=== PATIENT | female | born 1980 | race Caucasian/White ===

== ENCOUNTER → 2016-07-09 | Outpatient (CLI) | payer BC ==
--- NOTE | 2016-07-09 08:43 | XR ---
EXAMINATION TYPE: XR ankle complete LT DATE OF EXAM: 07/09/2016 8:35 AM COMPARISON: NONE HISTORY: Pain Three views of the ankle demonstrate the ankle mortise to be intact and symmetric. The joint spaces are preserved. The osseous structures are intact. Soft tissue edema noted. IMPRESSION: 1. No definite acute fracture or dislocation, if symptoms persist follow-up study in 7 to 10 days wou ld be suggested.
--- NOTE | 2016-07-09 08:45 | XR ---
EXAMINATION TYPE: XR cervical spine comp DATE OF EXAM: 07/09/2016 8:35 AM COMPARISON: NONE HISTORY: Pain Odontoid, frontal, lateral, and bilateral oblique views of the cervical spine are submitted. The odontoid is intact. There are no compression deformities. The prevertebral soft tissue structur es are within normal limits. Moderate hypertrophic and degenerative change C5-C6. IMPRESSION: 1. Moderate degenerative disc disease C5-C6. Consider MRI follow-up.
--- NOTE | 2016-07-09 08:47 | XR ---
EXAM TYPE: LUMBAR SPINE X RAY SERIES COMPARISON: NONE HISTORY: Back pain FINDINGS: Alignment is anatomic. The pedicles are intact. The transverse processes are intact. There is no s pondylolysis or spondylolisthesis. Severe degenerative disc disease L3-L4 with posterior spondylosis . Facet arthropathy L3-S1. IMPRESSION: 1. Severe degenerative disc disease L3-L4..
== END | disposition home or self-care (01) ==
LOC: RADXRMAIN 07:49
PROVIDERS: ATTEND Family Medicine
DX: M50.322 Other cervical disc degeneration at C5-C6 level (principal); M51.36 Other intervertebral disc degeneration, lumbar region; M25.572 Pain in left ankle and joints of left foot
CPT/HCPCS: 72050; 72110

== ENCOUNTER → 2016-08-05 | Outpatient (CLI) | payer BC ==
--- NOTE | 2016-08-05 08:51 | MR ---
EXAMINATION TYPE: MR lumbar spine wo con DATE OF EXAM: 08/05/2016 7:40 AM COMPARISON: NONE HISTORY: Pain TECHNIQUE: Multiplanar, multisequence images of the lumbar spine were acquired. L1-L2: Normal disc appearance without desiccation. No herniation, protrusion or disc bulging. No ca nal stenosis is present. Foramina are patent bilaterally. L2-L3: Normal disc appearance without desiccation. No herniation, protrusion or disc bulging. No ca nal stenosis is present. Foramina are patent bilaterally. L3-L4: Moderate disc desiccation is present. Circumferential disc bulge greatest posteriorly with the effacement of the ventral thecal sac. No evidence for central stenosis or lateral recess stenosis at this time. No disc herniation identified. Facet joint arthropathy also contributes to mild bilateral foraminal encroachment at this level. Degenerative endplate marrow changes identified. Mild ventral spondylosis. L4-L5: Normal disc appearance without desiccation. No herniation, protrusion or disc bulging. No ca nal stenosis is present. Foramina are patent bilaterally. L5-S1: Normal disc appearance without desiccation. No herniation, protrusion or disc bulging. No ca nal stenosis is present. Foramina are patent bilaterally. Lumbar segments are intact. No paraspinal masses are identified. Conus medullaris has a normal appe arance. IMPRESSION: Degenerative disc disease and disc bulging primarily at L3-4.
== END | disposition home or self-care (01) ==
LOC: RADMRIMAIN 07:07
PROVIDERS: ATTEND Family Medicine
DX: M51.16 Intervertebral disc disorders with radiculopathy, lumbar region (principal)
CPT/HCPCS: 72148

== ENCOUNTER → 2016-09-11 | Outpatient (CLI) | payer BC ==
--- NOTE | 2016-09-11 20:15 | CONS ---
DATE OF CONSULTATION: 09/11/2016 CONSULTATION/NEW PATIENT EVALUATION HISTORY OF PRESENT ILLNESS/SLEEP-WAKE EVALUATION: 36-year-old lady who has been evaluated in the sleep center for possible obstructive sleep apnea-hypopnea syndrome. SLEEP SCHEDULE: Patient's usual sleep schedule from 9:00 p.m. to 5:00 a.m. on working days and from 10 or 12 midnight until 8:00 a.m. on weekends. FALLING ASLEEP: She does have problems with falling asleep, has TV set in bedroom. DURING SLEEP: She sleeps in different positions with loud snoring, witnessed episodes of stopped breathing during sleep. Awakenings from sleep 2 times with one episode of nocturia, panic attack, heartburn. DURING THE DAY/WAKE STATE: In the morning patient wakes up tired, has difficulties to pay attention, has problems with memory, concentration, irritability, depression, anxiety and claustrophobia. Patient referred that she feels tired but possibly not sleepy. [place] Sleepiness Scale is 3. PAST MEDICAL HISTORY: Positive for anxiety, diabetes mellitus and back problems. PAST SURGICAL HISTORY: Cholecystectomy. MEDICATIONS: 1. Xanax. 2. Metformin. 3. Lexapro. 4. Meloxicam. SOCIAL HISTORY: Positive for smoking; quit one year ago, 1 pack a day. Smoked 1 pack a day for about 20 years. Alcohol consumption occasional. REVIEW OF SYSTEMS: Snoring, awakenings from sleep. Tiredness during the day. No fevers. No double vision. No recent chest pain. No shortness of breath. No abdominal pain. No bleeding episodes. No blood in urine. No seizure episodes. FAMILY HISTORY: Hypertension, arthritis, sinus headaches, sleep apnea, snoring, headaches, diabetes, and acid Keflex. PHYSICAL EXAMINATION: GENERAL: A lady without distress. VITAL SIGNS: BP 135/84, HR 74, RR 16. Height 5 foot 8 and one quarter. Weight 277. BMI 32.1. Neck 16 inches. Temperature 98.3. Oxygen saturation at room air 94%. Oropharynx extremely low position of soft palate. NECK: Supple. No JVD. Thyroid is not palpable. LUNGS: Clear to percussion and to auscultation. Good air exchange. No wheezing or rhonchi. HEART: S1, S2 regular. No murmurs, gallops or rubs. ABDOMEN: Obese. Soft and nontender. Bowel sounds are present. No organomegaly appreciated. EXTREMITIES: No clubbing or cyanosis. CHEESE SPRAYER: Awake, alert, and oriented x3. Cranial nerves 2 to 7 intact. There is no fasciculation or atrophy noted. No focal deficits observed. IMPRESSION: 1. Snoring, witnessed episodes of stopped breathing during the sleep, low position of soft palate, obstructive sleep apnea-hypopnea syndrome. 2. Obesity; body mass index 42.1. 3. Anxiety. 4. Diabetes mellitus. 5. Back problems. 6. Status post cholecystectomy. PLAN: 1. Home sleep apnea test for evaluation of patient's breathing during sleep. CPAP/BiPAP titration if sleep study confirms obstructive sleep apnea-hypopnea syndrome. 2. Preferable position during sleep on the side. 3. No driving if patient feels any sleepiness. Patient is aware of civil and criminal liability for unsafe driving. 4. I will see patient for follow-up visit to explain results of the testing and following plan. Thank you very much for referring this patient for consultation Sincerely, Casey Smith MD, PhD, FAASM. Diplomat of [place] [employer], Sleep Medicine Board by [place] [employer] Resident Programs Assistant of [facility] [place]
== END | disposition home or self-care (01) ==
LOC: SLEEP 15:35
PROVIDERS: ATTEND Internal Medicine
DX: G47.33 Obstructive sleep apnea (adult) (pediatric) (principal); E66.9 Obesity, unspecified; F41.9 Anxiety disorder, unspecified; E11.9 Type 2 diabetes mellitus without complications; Z68.41 Body mass index [BMI] 40.0-44.9, adult; Z79.899 Other long term (current) drug therapy
CPT/HCPCS: 99211

== ENCOUNTER 2018-08-12 14:25 | Emergency (ER) | payer BC, OTHER ==
[2018-08-12 14:47] VITALS: TEMP 98.6
[2018-08-12] MEDS ORDERED: SODIUM CHLORIDE 0.9% 500 ML 500 ML IV STA (15:19)
[2018-08-12] MEDS ORDERED: MORPHINE SULFATE 4 MG/ML SYRINGE IVP STA (15:20)
[2018-08-12 15:57] LABS: Basophils % (A) 1 %; Eosinophils # (A) 0.1 k/uL (0-0.7); Eosinophils % (A) 3 %; HCT 40.8 % (34.0-46.0); HGB 13.2 gm/dL (11.4-16.0); Lymphocytes # (A) 1.3 k/uL (1.0-4.8); Lymphocytes % (A) 27 %; MCH 29.7 pg (25.0-35.0); MCHC 32.4 g/dL (31.0-37.0); MCV 91.8 fL (80.0-100.0); Mean Platelet Volume 7.3; Monocytes # (A) 0.2 k/uL (0-1.0); Monocytes % (A) 5 %; Neutrophils # (A) 3.1 k/uL (1.3-7.7); Neutrophils % (A) 63 %; Platelet Count 266 k/uL (150-450); RBC 4.45 m/uL (3.80-5.40); RDW 12.9 % (11.5-15.5); WBC 4.9 k/uL (3.8-10.6)
[2018-08-12 16:05] LABS: INR 0.9 (<1.2); Partial Thromboplastin Time 24.7 sec (22.0-30.0); Prothrombin Time 9.8 sec (9.0-12.0)
[2018-08-12 16:10] LABS: ALT 48 U/L (9-52); AST 34 U/L (14-36); Albumin 4.1 g/dL (3.5-5.0); Alkaline Phosphatase 65 U/L (38-126); Anion Gap 9 mmol/L; Blood Urea Nitrogen 8 mg/dL (7-17); Calcium 9.1 mg/dL (8.4-10.2); Carbon Dioxide 25 mmol/L (22-30); Chloride 107 mmol/L (98-107); Glucose 138 mg/dL (74-99); Potassium 4.3 mmol/L (3.5-5.1); Sodium 141 mmol/L (137-145); Total Bilirubin 0.4 mg/dL (0.2-1.3); Total Protein 6.8 g/dL (6.3-8.2)
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
[2018-08-12] MEDS ORDERED: KETOROLAC 30 MG/ML 1 ML VIAL IVP STA (18:35)
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
[2018-08-12 18:51] VITALS: BP 136/85; PULSE 61; RESP 16
== END 2018-08-12 18:53 | disposition home or self-care (01) ==
LOC: EC 14:25
DX: S09.90XA Unspecified injury of head, initial encounter (principal); K76.0 Fatty (change of) liver, not elsewhere classified; R93.0 Abnormal findings on diagnostic imaging of skull and head, not elsewhere classified; R19.00 Intra-abdominal and pelvic swelling, mass and lump, unspecified site; M54.2 Cervicalgia; R10.9 Unspecified abdominal pain; E11.9 Type 2 diabetes mellitus without complications; F41.9 Anxiety disorder, unspecified; Z87.891 Personal history of nicotine dependence; Z88.0 Allergy status to penicillin; Z79.84 Long term (current) use of oral hypoglycemic drugs; Z79.899 Other long term (current) drug therapy; Z90.49 Acquired absence of other specified parts of digestive tract; V40.5XXA Car driver injured in collision with pedestrian or animal in traffic accident, initial encounter; Y93.89 Activity, other specified; Y92.410 Unspecified street and highway as the place of occurrence of the external cause; Y99.0 Civilian activity done for income or pay
CPT/HCPCS: 36415; 93005; 86900; 86901; 80053; 84484; 85025; 85610; 85730; 86850; 72125; 70450; 71260; 74177; 99284; 96374; 96375; 96361; J2270; J1885; Q9967

== ENCOUNTER → 2021-05-27 | Outpatient (CLI) | payer BC ==
[2021-05-27 10:20] LABS: Basophils # (A) 0.1 k/uL (0-0.2); Basophils % (A) 1 %; Eosinophils # (A) 0.1 k/uL (0-0.7); Eosinophils % (A) 1 %; HGB 12.8 gm/dL (11.4-16.0); Lymphocytes % (A) 31 %; MCH 31.4 pg (25.0-35.0); MCHC 32.7 g/dL (31.0-37.0); Monocytes # (A) 0.3 k/uL (0-1.0); Monocytes % (A) 4 %; Neutrophils % (A) 61 %; Platelet Count 302 k/uL (150-450); RBC 4.07 m/uL (3.80-5.40); RDW 12.2 % (11.5-15.5); WBC 6.5 k/uL (3.8-10.6)
[2021-05-27 10:45] LABS: African American GFR (CKD) >90 (>60 ml/min/1.73 sqM); Anion Gap 10 mmol/L; Blood Urea Nitrogen 13 mg/dL (7-17); Calcium 9.3 mg/dL (8.4-10.2); Carbon Dioxide 26 mmol/L (22-30); Chloride 101 mmol/L (98-107); Glucose 187 mg/dL (74-99); Non-African American GFR(CKD) >90 (>60 ml/min/1.73 sqM); Potassium 3.8 mmol/L (3.5-5.1); Sodium 137 mmol/L (137-145)
== END | disposition home or self-care (01) ==
LOC: LABPAT 09:22
PROVIDERS: ATTEND Orthopaedic Surgery Hand Surgery
DX: Z01.812 Encounter for preprocedural laboratory examination (principal); G56.01 Carpal tunnel syndrome, right upper limb
CPT/HCPCS: 36415; 80048; 85025

== ENCOUNTER 2021-05-29 12:33 | Day surgery (SDC) | payer BC ==
--- NOTE | 2021-05-28 08:42 | P.HPOR ---
History of Present Illness H&P Date: 05/28/21 Chief Complaint: Right Carpal Tunnel Syndrome ubjective: This is a 41 year old female that presents today for initial evaluation regarding b/l hand paresthesias and weakness. She first noticed the symptoms around 18 years ago while she was but has noticed increase in her symptoms over the past 2 years. She has tried night time splinting which provides some relief but she states her numbness is constant now and she occasionally drops things due to the weakness and feelings of electric shocks that she gets in her fingertips. The thumb, index, middle and ring fingers are mainly involved. She states her right side is worse than her left. Physical Examination: RUE: AIN/PIN/Radial/Ulnar/Median motor intact. Radial/Ulnar/Median SILT. 2+/4 Radial/Ulnar pulses palpated. Positive Durkans compression. 5/5 APB, 5/5 FDI. Negative Finkelsteins, Negative CMC grind. LUE: AIN/PIN/Radial/Ulnar/Median motor intact. Radial/Ulnar/Median SILT. 2+/4 Radial/Ulnar pulses palpated. 5/5 APB, 5/5 FDI. Negative Finkelsteins, Negative CMC grind. Impression: 1.) B/L Carpal tunnel syndrome, right worse than left. Plan: Diagnosis and treatment options were discussed with the patient. She has long standing symptoms of bilateral carpal tunnel syndrome and is a candidate for staged carpal tunnel releases. Risks and benefit of surgery including bleeding, infection, damage to surrounding tissue, need for further surgery, possible need to convert to open procedure, residual numbness were discussed and the patient wished to go forward with surgery. We will schedule the right side first followed by the left side 2 weeks later. Basic pre-op labs are ordered. The patient was agreeable with this plan of action and surgery will be scheduled in the near future. I anticipate 2-3 weeks per side off of work if needed due to the lifting nature of her job at [employer]. -Elliott Bains DO Orthopedic Hand/Upper Extremity Surgeon Past Medical History Past Medical History: Diabetes Mellitus Additional Past Medical History / Comment(s): carpal tunnel rt. has nexplanon control History of Any Multi-Drug Resistant Organisms: None Reported Past Surgical History: Section, Cholecystectomy Additional Past Surgical History / Comment(s): D&C Past Anesthesia/Blood Transfusion Reactions: Motion Sickness Past Psychological History: Anxiety Smoking Status: Former smoker Past Alcohol Use History: Rare Additional Past Alcohol Use History / Comment(s): STARTED SMOKING AT AGE 15 QUIT JULY 2015 SMOKED 1PPD Past Drug Use History: Marijuana Additional Drug Use History / Comment(s): edibles - Past Family History Mother Family Medical History: No Reported History Medications and Allergies Home Medications Medication Instructions Recorded Confirmed Type ALPRAZolam [Xanax] 0.25 mg PO DAILY PRN 08/12/18 05/28/21 History Escitalopram [Lexapro] 5 mg PO HS 08/12/18 05/28/21 History Ibuprofen [Motrin Ib] 800 mg PO TID PRN 08/12/18 05/28/21 History Melatonin 5 mg PO HS PRN 08/12/18 05/28/21 History metFORMIN HCL [Glucophage] 500 mg PO TID 08/12/18 05/28/21 History Multivitamins, Thera [Multivitamin 1 tab PO DAILY 05/28/21 05/28/21 History (formulary)] Allergies Allergy/AdvReac Type Severity Reaction Status Date / Time Penicillins AdvReac YEAST Verified 05/28/21 08:32 INFECTION Physical Examination Osteopathic Statement: *. No significant issues noted on an osteopathic structural exam other than those noted in the History and Physical/Consult.
[2021-05-28 08:44] VITALS: BMI 39.9
[~2021-05-29 12:33] MED LIST: HYDROmorphone 0.5 MG/0.5 ML SYRINGE IVP PRN; LACTATED RINGERS 1,000 ML IV SCH; LIDOCAINE 1% (10MG/ML) FOR IV START INTRADERMA PRN; METOCLOPRAMIDE 5 MG/ML 2 ML VIAL IVP PRN; ONDANSETRON 4 MG/2 ML VIAL IVP PRN; Pre Op ABX Message 1 EACH MISC MISCELLANE ONE
[2021-05-29 13:21] VITALS: TEMP 98.7
[2021-05-29] MEDS ORDERED: DEXAMETHASONE SOD PHOSPHATE 4 MG/ML 1 ML VIAL IVP ONE (13:22)
[2021-05-29] MEDS ORDERED: SCOPOLAMINE 1.5MG/72HR PATCH TRANSDERM ONE (13:23)
[2021-05-29 13:25] LABS: Glucose,Whole Blood 124 mg/dL (75-99)
[2021-05-29] MEDS ORDERED: ONDANSETRON 4 MG/2 ML VIAL ONE (13:26)
[2021-05-29] MEDS ORDERED: PROPOFOL 10 MG/ML 20 ML VIAL IV ONE (14:41)
[2021-05-29] MEDS ORDERED: MIDAZOLAM 2 MG/2 ML VIAL ONE (14:41)
[2021-05-29] MEDS ORDERED: fentaNYL (PF) 50 MCG/ML 2 ML AMP ONE (14:41)
[2021-05-29] MEDS ORDERED: LIDOCAINE 1% INJ 10MG/ML (10 ML MDV) SQ ONE (15:00)
[2021-05-29] MEDS ORDERED: LIDOCAINE 0.5% (PF) 5 MG/ML (50 ML SDV) SQ ONE (15:08)
[2021-05-29 15:27] VITALS: PULSE 62
[2021-05-29 15:43] VITALS: RESP 18
[2021-05-29 15:46] VITALS: BP 121/76
--- NOTE | 2021-05-29 18:38 | P.OP ---
Date of Procedure: 05/29/21 Preoperative Diagnosis: Right Carpal Tunnel Syndrome Postoperative Diagnosis: Right Carpal Tunnel Syndrome Procedure(s) Performed: Right Endoscopic carpal tunnel release Anesthesia: MAC Surgeon: Elliott Bains Brusher #1: Husam Ware Estimated Blood Loss (ml): 0 Pathology: none sent Condition: stable Disposition: PACU Operative Findings: This is a 41 year old female who presents today for a right endoscopic carpal tunnel release after having failed conservative treatment in the past. Risks and benefits of surgery were discussed with the patient including bleeding, damage to surrounding tissue, infection, need to convert to open procedure, need for further surgery as well as risks of anesthesia including pulmonary embolism and even and the patient wished to proceed with surgical intervention. The patients was seen in the pre-operative area by myself. Consent and H&P were completed and updated. The correct extremity was marked in the pre-operative area by myself and all other questions were answered. Operative Narrative: The patient was brought to the operating room by the department of anesthesia. They remained on the portable stretcher and a rolling hand table was brought to the side of the operative extremity. Pre-operative time out was performed indicating the correct patient, procedure and laterality. All in the room agreed. The patient was then drifted off to sleep by the department of anesthesia. MAC anesthesia was utilized and a 50:50 mixture of 1% Lidocaine and 0.5% bupivacaine was injected into the subcutaneous tissues of the palmar skin, 6 ccs total. A nonsterile tourniquet was then applied to the operative extremity and the right upper extremity was then prepped and draped in normal sterile fashion. The operative extremity was the exsanguinated with an esmarch bandage and the tourniquet was inflated to 250mmHg. 15 blade scalpel was utilized to make a transverse incision on the palmar skin just ulnar to the palmaris longus tendon at the level of the distal wrist crease. Ragnell retractor was then placed radially and blunt dissection was performed to reveal the distal forearm fascia. This was lifted with fine Rodrigo pick ups and Littler tenotomy scissors were then used to open the forearm fascia transversely and a double skin hook was then placed. Hamate finder was placed into the carpal tunnel and then sequential sized dilators were inserted followed by the synovial elevator to separate the flexor tenosynovium from the undersurface of the transverse carpal ligament and a washboard texture was felt. The MicroAire endoscopic carpal tunnel release system gun was the then inserted into the carpal tunnel hugging the deep portion of the transverse carpal ligament in line with the base of the ring finger. Transverse fibers of the ligament were directly visualized. Pressure was applied on the palm to reveal the distal extent of the transverse carpal ligament. The blade was then deployed and the distal half of the transverse carpal ligament was released. The scope was then brought distal again and remaining transverse fibers were incised with the blade. The proximal half of the transverse carpal ligament was then divided and again the scope was advanced distal and remaining transverse fibers were incised with the blade. The radial and ulnar leaflets were directly visualized and mobile consistant with complete release. Tenotomy scissors were then util ized to release the remaining distal forearm fascia under direct visualization taking care to preserve the palmar cutaneous branch of the median nerve. Skin closure was performed with interrupted 4-0 Monocryl suture followed by Mastisol and steri strips. Sterile dressing was applied consisting of adaptic, 4x4s, Webril, and an michael bandage. Tourniquet was let down and the hand immediately was well perfused. The patient was then woken by the department of anesthesia and transferred to PACU in stable condition. Elliott Bains D.O. Orthopedic Hand/Upper Extremity Surgeon
== END 2021-05-29 16:07 | disposition home or self-care (01) ==
LOC: OR 12:33
PROVIDERS: ATTEND Orthopaedic Surgery Hand Surgery
DX: G56.03 Carpal tunnel syndrome, bilateral upper limbs (principal); E11.9 Type 2 diabetes mellitus without complications; F41.9 Anxiety disorder, unspecified; Z88.0 Allergy status to penicillin; M54.9 Dorsalgia, unspecified; G89.29 Other chronic pain; Z87.891 Personal history of nicotine dependence; Z79.899 Other long term (current) drug therapy
CPT/HCPCS: 29848; J1100; J2405; J2001 ×2; 81025

== ENCOUNTER 2021-06-19 07:57 | Day surgery (SDC) | payer BC ==
[2021-06-17 10:28] VITALS: BMI 40.0
--- NOTE | 2021-06-18 10:40 | P.HPOR ---
History of Present Illness H&P Date: 06/18/21 Chief Complaint: Left Carpal Tunnel Syndrome Subjective: This is a 41 year old female that presents today for initial evaluation regarding b/l hand paresthesias and weakness. She first noticed the symptoms around 18 years ago while she was but has noticed increase in her symptoms over the past 2 years. She has tried night time splinting which provides some relief but she states her numbness is constant now and she occasionally drops things due to the weakness and feelings of electric shocks that she gets in her fingertips. The thumb, index, middle and ring fingers are mainly involved. She states her right side is worse than her left. Physical Examination: RUE: AIN/PIN/Radial/Ulnar/Median motor intact. Radial/Ulnar/Median SILT. 2+/4 Radial/Ulnar pulses palpated. Positive Durkans compression. 5/5 APB, 5/5 FDI. Negative Finkelsteins, Negative CMC grind. LUE: AIN/PIN/Radial/Ulnar/Median motor intact. Radial/Ulnar/Median SILT. 2+/4 Radial/Ulnar pulses palpated. 5/5 APB, 5/5 FDI. Negative Finkelsteins, Negative CMC grind. Impression: 1.) B/L Carpal tunnel syndrome, right worse than left. Plan: Diagnosis and treatment options were discussed with the patient. She has long standing symptoms of bilateral carpal tunnel syndrome and is a candidate for staged carpal tunnel releases. Risks and benefit of surgery including bleeding, infection, damage to surrounding tissue, need for further surgery, possible need to convert to open procedure, residual numbness were discussed and the patient wished to go forward with surgery. We will schedule the right side first followed by the left side 2 weeks later. Basic pre-op labs are ordered. The patient was agreeable with this plan of action and surgery will be scheduled in the near future. I anticipate 2-3 weeks per side off of work if needed due to the lifting nature of her job at [employer]. Past Medical History Past Medical History: Diabetes Mellitus Additional Past Medical History / Comment(s): Has Nexplanon Control. History of Any Multi-Drug Resistant Organisms: None Reported Past Surgical History: Section, Cholecystectomy Additional Past Surgical History / Comment(s): D&C, right carpal tunnel surgery. Past Anesthesia/Blood Transfusion Reactions: Motion Sickness Past Psychological History: Anxiety Smoking Status: Former smoker Past Alcohol Use History: Rare Additional Past Alcohol Use History / Comment(s): STARTED SMOKING AT AGE 15, QUIT JULY 2015, SMOKED 1PPD. Past Drug Use History: Marijuana Additional Drug Use History / Comment(s): Edibles. Aware no use 24 hrs prior to procedure. - Past Family History Mother Family Medical History: No Reported History Medications and Allergies Home Medications Medication Instructions Recorded Confirmed Type ALPRAZolam [Xanax] 0.25 mg PO DAILY PRN 08/12/18 06/17/21 History Escitalopram [Lexapro] 5 mg PO HS 08/12/18 06/17/21 History Ibuprofen [Motrin Ib] 800 mg PO TID PRN 08/12/18 06/17/21 History Melatonin 5 mg PO HS PRN 08/12/18 06/17/21 History metFORMIN HCL [Glucophage] 500 mg PO TID 08/12/18 06/17/21 History Multivitamins, Thera [Multivitamin 1 tab PO DAILY 05/28/21 06/17/21 History (formulary)] Allergies Allergy/AdvReac Type Severity Reaction Status Date / Time Penicillins AdvReac YEAST Verified 06/17/21 10:23 INFECTION Physical Examination Osteopathic Statement: *. No significant issues noted on an osteopathic structural exam other than those noted in the History and Physical/Consult.
[~2021-06-19 07:57] MED LIST changes: +DEXAMETHASONE SOD PHOSPHATE 4 MG/ML 1 ML VIAL IV ONE; -METOCLOPRAMIDE 5 MG/ML 2 ML VIAL IVP PRN; +ONDANSETRON 4 MG/2 ML VIAL IVP ONE; -ONDANSETRON 4 MG/2 ML VIAL IVP PRN; +SCOPOLAMINE 1.5MG/72HR PATCH TRANSDERM ONE
[2021-06-19 09:11] VITALS: BP 153/101; PULSE 76; RESP 16; TEMP 97.5
[2021-06-19] MEDS ORDERED: PROPOFOL 10 MG/ML 20 ML VIAL IV ONE (09:12)
[2021-06-19] MEDS ORDERED: MIDAZOLAM 2 MG/2 ML VIAL ONE (09:12)
[2021-06-19] MEDS ORDERED: LIDOCAINE 1% INJ 10MG/ML (20 ML MDV) ONE (09:12)
[2021-06-19] MEDS ORDERED: BUPIVACAINE (PF) 0.5% 30 ML VIAL SQ ONE (09:21)
[2021-06-19] MEDS ORDERED: LIDOCAINE 1% INJ 10MG/ML (20 ML MDV) SQ ONE (09:22)
[2021-06-19 09:28] LABS: Glucose,Whole Blood 126 mg/dL (75-99)
--- NOTE | 2021-06-19 16:26 | P.OP ---
Date of Procedure: 06/19/21 Preoperative Diagnosis: Left Carpal Tunnel Syndrome Postoperative Diagnosis: Left carpal tunnel syndrome Procedure(s) Performed: Left endoscopic carpal tunnel release Anesthesia: MAC Surgeon: Elliott Bains Adoption Manager #1: Husam Ware Estimated Blood Loss (ml): 0 Pathology: none sent Condition: stable Disposition: PACU Description of Procedure: This is a 41 year old female who presents today for a left endoscopic carpal tunnel release after having failed conservative treatment in the past. Risks and benefits of surgery were discussed with the patient including bleeding, damage to surrounding tissue, infection, need to convert to open procedure, need for further surgery as well as risks of anesthesia including pulmonary embolism and even and the patient wished to proceed with surgical intervention. The patients was seen in the pre-operative area by myself. Consent and H&P were completed and updated. The correct extremity was marked in the pre-operative area by myself and all other questions were answered. Operative Narrative: The patient was brought to the operating room by the department of anesthesia. They remained on the portable stretcher and a rolling hand table was brought to the side of the operative extremity. Pre-operative time out was performed indicating the correct patient, procedure and laterality. All in the room agreed. The patient was then drifted off to sleep by the department of anesthesia. MAC anesthesia was utilized and a 50:50 mixture of 1% Lidocaine and 0.5% bupivacaine was injected into the subcutaneous tissues of the palmar skin, 7ccs total. A nonsterile tourniquet was then applied to the operative extremity and the left upper extremity was then prepped and draped in normal sterile fashion. The operative extremity was the exsanguinated with an esmarch bandage and the tourniquet was inflated to 250mmHg. 15 blade scalpel was utilized to make a transverse incision on the palmar skin just ulnar to the palmaris longus tendon at the level of the distal wrist crease . Ragnell retractor was then placed radially and blunt dissection was performed to reveal the distal forearm fascia. This was lifted with fine Rodrigo pick ups and Littler tenotomy scissors were then used to open the forearm fascia transversely and a double skin hook was then placed. Hamate finder was placed into the carpal tunnel and then sequential sized dilators were inserted followed by the synovial elevator to separate the flexor tenosynovium from the undersurface of the transverse carpal ligament and a washboard texture was felt. The MicroAire endoscopic carpal tunnel release system gun was the then inserted into the carpal tunnel hugging the deep portion of the transverse carpal ligament in line with the base of the ring finger. Transverse fibers of the ligament were directly visualized. Pressure was applied on the palm to reveal the distal extent of the transverse carpal ligament. The blade was then deployed and the distal half of the transverse carpal ligament was released. The scope was then brought distal again and remaining transverse fibers were incised with the blade. The proximal half of the transverse carpal ligament was then divided and again the scope was advanced distal and remaining transverse fibers were incised with the blade. The radial and ulnar leaflets were directly visualized and mobile consistant with complete release. Tenotomy scissors were then uti lized to release the remaining distal forearm fascia under direct visualization taking care to preserve the palmar cutaneous branch of the median nerve. Skin closure was performed with interrupted 4-0 Monocryl suture followed by Mastisol and steri strips. Sterile dressing was applied consisting of adaptic, 4x4s, Webril, and an michael bandage. Tourniquet was let down and the hand immediately was well perfused. The patient was then woken by the department of anesthesia and transferred to PACU in stable condition. Elliott Bains D.O. Orthopedic Hand/Upper Extremity Surgeon
== END 2021-06-19 10:19 | disposition home or self-care (01) ==
LOC: OR 07:57
PROVIDERS: ATTEND Orthopaedic Surgery Hand Surgery
DX: G56.02 Carpal tunnel syndrome, left upper limb (principal); E11.9 Type 2 diabetes mellitus without complications; F41.9 Anxiety disorder, unspecified; Z87.891 Personal history of nicotine dependence; Z79.84 Long term (current) use of oral hypoglycemic drugs; G47.33 Obstructive sleep apnea (adult) (pediatric); Z79.899 Other long term (current) drug therapy; Z88.0 Allergy status to penicillin
CPT/HCPCS: 81025; 29848; J2250; J1100; J2405; J2001; J2704

== ENCOUNTER → 2021-11-26 | Outpatient (CLI) | payer BC | END | disposition home or self-care (01) | LOC: LABPAT 09:04 | PROVIDERS: ATTEND Obstetrics & Gynecology | DX: Z53.9 Procedure and treatment not carried out, unspecified reason (principal) | CPT/HCPCS: 80051; 82565; 82947; 83735; 84520; 85025; 86850; 86900; 86901; 87086 ==

== ENCOUNTER 2021-12-03 05:32 | Observation (INO) | payer BC ==
[2021-11-26 14:38] LABS: Basophils # (A) 0.06 X 10*3/uL (0.00-0.10); Eosinophils # (A) 0.08 X 10*3/uL (0.04-0.35); Eosinophils % (A) 1.3 %; HCT 41.2 % (37.2-46.3); HGB 13.2 g/dL (12.0-15.0); Immature Grans, Automated 0.2 %; Lymphocytes # (A) 1.97 X 10*3/uL (0.90-5.00); Lymphocytes % (A) 32.8 %; MCH 29.9 pg (27.0-32.0); MCV 93.4 fL (80.0-97.0); Mean Platelet Volume 11.1 fL (9.5-12.2); NRBC Per 100 WBC 0 /100 WBCS (0.0-0.0); Neutrophils # (A) 3.58 X 10*3/uL (1.80-7.70); Neutrophils % (A) 59.7 %; Platelet Count 307 X 10*3/uL (140-440); RBC 4.41 X 10*6/uL (4.10-5.20); RDW 12.7 % (11.5-14.5)
[2021-11-26 15:36] LABS: African American GFR (CKD) 127.7 (60.0-200.0); Anion Gap 11.7 mmol/L (10.00-18.00); Blood Urea Nitrogen 10.3 mg/dL (9.0-27.0); Carbon Dioxide 23.1 mmol/L (20.0-27.5); Magnesium 2.1 mg/dL (1.5-2.4); Non-African American GFR(CKD) 110.2 (60.0-200.0); Potassium 4.7 mmol/L (3.5-5.5)
[2021-11-27 11:45] VITALS: BMI 40.6
[~2021-12-03 05:32] MED LIST changes: -DEXAMETHASONE SOD PHOSPHATE 4 MG/ML 1 ML VIAL IV ONE; -HYDROmorphone 0.5 MG/0.5 ML SYRINGE IVP PRN; -LACTATED RINGERS 1,000 ML IV SCH; -LIDOCAINE 1% (10MG/ML) FOR IV START INTRADERMA PRN; -ONDANSETRON 4 MG/2 ML VIAL IVP ONE; -Pre Op ABX Message 1 EACH MISC MISCELLANE ONE; -SCOPOLAMINE 1.5MG/72HR PATCH TRANSDERM ONE; +ceFAZolin 3 GM in SODIUM CHLORIDE 0.9% 100 ML IVPB PRN
[2021-12-03] MEDS ORDERED: MIDAZOLAM 2 MG/2 ML VIAL IV PRN (05:39)
[2021-12-03] MEDS ORDERED: LIDOCAINE 1% (10MG/ML) FOR IV START INTRADERMA PRN (05:39)
[2021-12-03] MEDS ORDERED: ONDANSETRON 4 MG/2 ML VIAL ONE (06:28)
[2021-12-03 06:41] LABS: Glucose,Whole Blood 184 mg/dL (70-110)
[2021-12-03] MEDS: LACTATED RINGERS 1,000 ML IV SCH ×3 (06:47→21:12)
[2021-12-03] MEDS ORDERED: DEXAMETHASONE SOD PHOSPHATE 4 MG/ML 1 ML VIAL IVP ONE (06:55)
[2021-12-03] MEDS ORDERED: MIDAZOLAM 2 MG/2 ML VIAL IVP ONE (06:56)
[2021-12-03] MEDS ORDERED: LACTATED RINGERS 1,000 ML IV ONE (08:35)
[2021-12-03] MEDS ORDERED: BUPIVACAINE (PF) 0.25% 30 ML VIAL SQ ONE (08:37)
[2021-12-03] MEDS: HYDROmorphone 0.5 MG/0.5 ML SYRINGE IVP PRN ×2 (10:08→10:10)
[2021-12-03] MEDS ORDERED: diphenhydrAMINE 50 MG/ML 1 ML VIAL IVP PRN (10:09)
[2021-12-03] MEDS ORDERED: ONDANSETRON 4 MG/2 ML VIAL IVP PRN (10:09)
[2021-12-03] MEDS ORDERED: Acetaminophen-Codeine 300-30mg TAB PO PRN (10:09)
[2021-12-03] MEDS ORDERED: SIMETHICONE 80 MG CHEWABLE PO PRN (10:09)
[2021-12-03] MEDS ORDERED: METOCLOPRAMIDE 5 MG/ML 2 ML VIAL IVP PRN (10:09)
[2021-12-03] MEDS ORDERED: HYDROmorphone PCA 10 MG/50 ML BAG IV PRN (10:13)
[2021-12-03] MEDS ORDERED: NALOXONE 0.4 MG/ML 1 ML VIAL IV PRN (10:13)
[2021-12-03 10:26] LABS: Glucose,Whole Blood 244 mg/dL (70-110)
--- NOTE | 2021-12-03 10:30 | P.OP ---
Date of Procedure: 12/03/21 Preoperative Diagnosis: #1. Menometrorrhagia #2. 9 cm left ovarian cyst, presumptive dermoid Postoperative Diagnosis: Same plus #3. Extensive abdomino-pelvic omental adhesions Procedure(s) Performed: #1. Attempted da Hawa robotically assisted laparoscopic hysterectomy, failed #2. Total abdominal hysterectomy #3. Left salpingo-oophorectomy #4. Right salpingectomy Anesthesia: ARYAN Surgeon: Dominic Estrella Screw Machine Operator Swiss Type #1: Kandis Sun Estimated Blood Loss (ml): 200 IV fluids (ml): 900 Urine output (ml): 500 Pathology: other (Uterus, bilateral tubes, left ovary) Condition: stable Disposition: PACU Operative Findings: Intraoperatively, some difficulty was initially encountered placing the optical trocar under direct visualization. After successfully placing it and infusing a pneumoperitoneum, it was clear that the entire lower and upper abdomen were involved with extensive omental adhesions primarily to the anterior abdominal wall. There was no way to safely place any further trochars. Though we could see the uterus, further attempts at robotic hysterectomy could not be undertaken. The robotic approach was abandoned in favor of open. During the open case, there was significant omental adhesions in the midline likely from her previous vertical section and potentially also contributed to by her cholecystectomy. We were able to clear the omental adhesions the midline in order to proceed with the procedure. In the pelvis, there was a large left ovarian cyst approximately 6 x 6 x 9 cm which was smooth in appearance and benign in appearance is well. The uterus was otherwise relatively normal although there was fairly dense adhesive disease at the bladder. The right ovary was entirely normal to inspection. Clear urine was noted throughout the entire case. Description of Procedure: The patient was prepped and draped in usual fashion after general endotracheal anesthesia was administered by the anesthesiologist. A weighted speculum was placed and the anterior lip of the cervix grasped with a single-tooth tenaculum. Serial dilation was carried out to admit a [facility] uterine manipulator with a large cup which was placed in standard fashion. The bladder was then catheterized with a Billingsley catheter. Attention was turned to the abdomen where a site was selected approximately 3-4 cm above the umbilicus in the midline where an 8 mm incision was made in the transverse plane initial attempts to insert the optical trocar directly failed and a Veress needle was utilized to create a pneumoperitoneum with a successful pain drop test prior to insufflation. The optical trocar then was able to be placed. Was clear that there was some omental adhesions initially but further exploration with the scope demonstrated that we were able to get past the adhesions but only deep in the pelvis. We were unable to see the abdominal sidewalls anywhere near to the site of further da Hawa robotic ports. After some deliberation, the decision was to abandon the laparoscopic approach and proceed with an open approach. All instrumentation was removed and the pneumoperitoneum evacuated through the port. The port was then removed and discarded. While the case is being converted from a equipment perspective, the single stitch in the midline was closed with an interrupted subcuticular stitch of 4-0 Vicryl. Once all the pulmonary counts were taken care of, a Pfannenstiel incision was made in the transverse plane and extended down to the fascia without difficulty. The fascia was divided in standard fashion. The abdomen was then entered sharply but it was clear that omental adhesions were involved with the entire midline incision. We were ultimately able to clear this sharply with scissors and Bovie. After enlarging the incision enough to be a vertex for the pelvis with the findings as noted above, a Pancho O'Saenz self-retaining retractor was placed and the bowel was packed from the field. The left ovarian cyst was brought up into the field and a [place] clamp placed across the entire tubo-ovarian complex allowing it to be removed though it was to be sent with the entire specimen in a single specimen container. It did have a completely benign appearances in was removed unruptured. The margins of the uterus were then grasped with Ariana clamps and the round ligament on the right side elevated, clamped with [place] clamp, cut, and suture-ligated with a stitch of 0 Vicryl. A window was then made in the posterior leaf of the peritoneum lung isolation of the utero-ovarian pedicle which was clamped with a [place] clamp with the fallopian tube included on the uterine side, cut, and suture-ligated with a transfixion stitch of 0 Vicryl followed by a free tie of 0 Vicryl thus leaving the right ovary in place. It was completely normal in appearance. The bladder peritoneum was then developed across the midline and some minor skeletonization of the blood vessels carried out on the right side. Attention was turned the left side where similar operations were carried out without difficulty. The bladder peritoneum was then brought across to the previous incision line and the bladder swept distally both sharply and bluntly. After skeletonization of the blood vessels bilaterally, curved [place] clamps were placed across the vascular pedicles along the wound be cut, and suture-ligated with a transfixion stitch of 0 Vicryl. Several bites were taken with straight [place] clamps on each side, each being cut, and suture ligated with transfixion stitches of 0 Vicryl. The cervix was very deep in the pelvis. Ultimately, curved [place] clamps are utilized to come underneath the cervix allowing the specimen to be removed from the patient and sent along with the previous specimen for further diagnoses and pathology. The vaginal cuff was then suture ligated with transfixion stitches of 0 Vicryl. There was no intervening open portion in the central area. Thorough irrigation was carried out. There was some generalized oozing noted throughout the pelvis. Anything that was obvious was made hemostatic with the Bovie. There appeared to be some continued bleeding from underneath the bladder flap which was nonspecific in nature. As a result of the decision was made to place FloSeal which was used to fill the area above the vaginal cuff and below the bladder and along the previously tied pedicles. This created excellent hemostasis. After ensuring there was no ongoing bleeding, the instrumentation was removed. Examination of the omentum was carried out and any small points of bleeding were made hemostatic with the Bovie. The layer of muscles was examined and made hemostatic with the Bovie. The fascia was closed with 2 running stitches of 0 Vicryl proceeding from the lateral margins to the midpoint. The subcutaneous tissues were irrigated, made hemostatic with the Bovie, and reapproximated with a running stitch of 3-0 Vicryl. The skin was reapproximated with regular surgical viktoriya. All sponge, instrument, and needle counts were correct. Estimated blood loss for the case was approximately 200 mL. There were no complications aside from the need to convert from robotic approach to open approach. The patient tolerated the procedure well and proceeded to the recovery room in stable condition.
[2021-12-03] MEDS: INSULIN ASPART (NovoLOG) 100 UNIT/ML VIAL SQ ONE ×2 (10:44→10:49)
[2021-12-03] MEDS ORDERED: NEOSTIGMINE 1 MG/ML 10 ML VIAL ONE (12:20)
[2021-12-03] MEDS ORDERED: GLYCOPYRROLATE 0.2 MG/ML 2 ML VIAL ONE (12:20)
[2021-12-03] MEDS ORDERED: LIDOCAINE 2% INJ 20 MG/ML (2 ML VIAL) ONE (12:20)
[2021-12-03] MEDS ORDERED: HEPARIN SODIUM,PORCINE 5,000 UNIT/ML 1 ML VIAL ONE (12:20)
[2021-12-03] MEDS ORDERED: fentaNYL (PF) 50 MCG/ML 2 ML AMP ONE (12:20)
[2021-12-03] MEDS ORDERED: HYDROmorphone (PF) 1 MG/ML ONE (12:20)
[2021-12-03] MEDS ORDERED: SUCCINYLCHOLINE CHLORIDE 100 MG/5 ML SYR IV ONE (12:20)
[2021-12-03] MEDS ORDERED: PROPOFOL 10 MG/ML 20 ML VIAL IV ONE (12:20)
[2021-12-03] MEDS ORDERED: ROCURONIUM 10 MG/ML (5 ML VIAL) IV ONE (12:20)
[2021-12-03] MEDS: KETOROLAC 15 MG/ML 1 ML VIAL IVP PRN (16:47)
[2021-12-03 16:51] LABS: Glucose,Whole Blood 172 mg/dL (70-110)
[2021-12-03] MEDS: INSULIN ASPART (NovoLOG) 100 UNIT/ML VIAL SQ SCH ×2 (18:12→21:48)
[2021-12-03 21:40] LABS: Glucose,Whole Blood 203 mg/dL (70-110)
[2021-12-03] MEDS: SENNOSIDES-DOCUSATE SODIUM 1 EACH TAB PO SCH (21:48)
[2021-12-04] MEDS: KETOROLAC 15 MG/ML 1 ML VIAL IVP PRN ×3 (05:41→17:07)
[2021-12-04] MEDS: LACTATED RINGERS 1,000 ML IV SCH ×3 (05:56→19:43)
[2021-12-04 07:11] LABS: Basophils % (A) 1 %; Eosinophils # (A) 0.1 k/uL (0-0.7); Eosinophils % (A) 1 %; HCT 32.1 % (34.0-46.0); Lymphocytes # (A) 1.9 k/uL (1.0-4.8); Lymphocytes % (A) 29 %; MCH 32.6 pg (25.0-35.0); MCHC 34.3 g/dL (31.0-37.0); Mean Platelet Volume 8.2; Monocytes # (A) 0.4 k/uL (0-1.0); Monocytes % (A) 6 %; Neutrophils # (A) 4.3 k/uL (1.3-7.7); Neutrophils % (A) 64 %; Platelet Count 238 k/uL (150-450); RBC 3.38 m/uL (3.80-5.40); RDW 12.6 % (11.5-15.5); WBC 6.7 k/uL (3.8-10.6)
[2021-12-04] MEDS: metFORMIN 500 MG TAB PO SCH ×4 (07:51→22:05)
[2021-12-04 08:02] LABS: Glucose,Whole Blood 171 mg/dL (70-110)
--- NOTE | 2021-12-04 08:56 | P.PN ---
Subjective Progress Note Date: 12/04/21 Principal diagnosis: Status post JO, LSO, right salpingectomy; failed da Hawa approach The patient reports moderate discomfort. She does feel gas rumbling but has not actually passed flatus at this point. She has been up and moving around and is having no difficulty with voiding. She is tolerating liquids well. Objective - Vital Signs Vital signs: Vital Signs Temp 98.2 F 12/04/21 04:15 Pulse 78 12/04/21 04:15 Resp 16 12/04/21 04:15 BP 127/74 12/04/21 04:15 Pulse Ox 98 12/03/21 17:25 FiO2 Intake & Output 12/03/21 12/04/21 12/04/21 18:59 06:59 18:59 Intake Total 1700 1440 Output Total 1650 1150 Balance 50 290 Weight 122.7 kg Intake: IV 1700 Oral 1440 Output: Urine 1450 1150 Uretheral (Billingsley) 450 Estimated Blood Loss 200 Other: # Voids 1 - Exam In general, this is a well-developed, moderately obese white female in no acute distress. Her heart has a regular rhythm and rate without murmur. Her lungs are clear to auscultation bilaterally in all rich. Her abdomen is nondistended, soft, with appropriate tenderness. Her incision is bruised but otherwise clean, dry, and intact. Her extremities without any cyanosis, clubbing, or edema and are nontender to palpation bilaterally. - Labs CBC & Chem 7: 12/04/21 05:25 11/26/21 09:16 Labs: Abnormal Lab Results - Last 24 Hours (Table) 12/03/21 12/03/21 12/03/21 Range/Units 10:25 16:49 21:38 RBC (3.80-5.40) m/uL Hgb (11.4-16.0) gm/dL Hct (34.0-46.0) % POC Glucose (mg/dL) 244 H 172 H 203 H (70-110) mg/dL 12/04/21 12/04/21 Range/Units 05:25 07:59 RBC 3.38 L (3.80-5.40) m/uL Hgb 11.0 L (11.4-16.0) gm/dL Hct 32.1 L (34.0-46.0) % POC Glucose (mg/dL) 171 H (70-110) mg/dL Assessment and Plan (1) Menometrorrhagia Current Visit: Yes Status: Acute Code(s): N92.1 - EXCESSIVE AND FREQUENT MENSTRUATION WITH IRREGULAR CYCLE SNOMED Code(s): 409163852 (2) Ovarian cyst Current Visit: Yes Status: Acute Code(s): N83.209 - UNSPECIFIED OVARIAN CYST, UNSPECIFIED SIDE SNOMED Code(s): 36562103 Plan: Continue routine postoperative care. We will advance her diet with flatus. She is permitted to take all of her normal home medications. We will discontinue both the MILL CONTROL OPERATOR and the sliding scale insulin in favor of her oral metformin and oral pain medications. I strongly encouraged her to ambulate in the hallways routinely.
[2021-12-04] MEDS ORDERED: ACETAMINOPHEN TAB 325 MG TAB PO PRN (10:12)
[2021-12-04 12:18] LABS: Glucose,Whole Blood 159 mg/dL (70-110)
[2021-12-04] MEDS: Acetaminophen-Codeine 300-30mg TAB PO PRN ×2 (13:27→20:01)
[2021-12-04] MEDS: SENNOSIDES-DOCUSATE SODIUM 1 EACH TAB PO SCH ×2 (17:19→20:01)
[2021-12-04 18:35] LABS: Glucose,Whole Blood 216 mg/dL (70-110)
[2021-12-04] MEDS: INSULIN ASPART (NovoLOG) 100 UNIT/ML VIAL SQ SCH (19:43)
[2021-12-04] MEDS: IBUPROFEN 600 MG TAB PO PRN (23:07)
[2021-12-05 00:04] VITALS: RESP 16
[2021-12-05] MEDS: Acetaminophen-Codeine 300-30mg TAB PO PRN ×2 (02:09→07:50)
[2021-12-05] MEDS: IBUPROFEN 600 MG TAB PO PRN (05:13)
[2021-12-05] MEDS: SENNOSIDES-DOCUSATE SODIUM 1 EACH TAB PO SCH (07:50)
[2021-12-05 07:53] VITALS: BP 124/78; PULSE 69; TEMP 98.4
[2021-12-05] MEDS: metFORMIN 500 MG TAB PO SCH (08:01)
--- NOTE | 2021-12-05 08:44 | P.DS ---
Providers Date of admission: 12/03/21 17:28 Expected date of discharge: 12/05/21 Attending physician: Dominic Estrella Primary care physician: Marcus Molina - Discharge Diagnosis(es) (1) Menometrorrhagia Current Visit: Yes Status: Acute (2) Ovarian cyst Current Visit: Yes Status: Acute Hospital Course: The patient is a 41-year-old 3 para 2011 who presented to the office with a long-standing history of menometrorrhagia which for quite some time was managed very effectively with Mirena. When the Mirena was added slice and, attempts to replace it failed secondary to cervical stenosis and we opted to proceed with Placement. She continued to have some irregular bleeding despite the . Historically, she had a known dermoid which, at this years annual examination, we opted to recheck and it was found to have significantly enlarged to approximately 9 cm in largest dimension. Given the cyst which now warranted removal and her ongoing menstrual issues, the decision was made to proceed with hysterectomy. She was counseled regarding the da Hawa approach given her history of 2 previous sections and agreed to that understanding that the failsafe is always abdominal hysterectomy. She was taken the operating room where after placement of the initial optical trocar, it was very clear that she had significant omental adhesions to the anterior abdominal wall and the da Hawa approach was abandoned. She then underwent total abdominal hysterectomy with left salpingo-oophorectomy and right salpingectomy in uncomplicated fashion. Her postoperative course was unremarkable with vital signs remaining stable and her temperature was afebrile throughout. She was tolerating regular diet by the late afternoon of postoperative day #1 and was deemed stable for discharge on postoperative day #2. She was discharged home to follow-up in the office in 2 weeks for an incision check and 6 weeks routinely. Discharge instructions included calling for any significantly increased bleeding, fever, pain, incisional concerns, concerns for infection, or anything else that conc erned her. She was additionally instructed to do no heavy lifting over the next 6 weeks time to abstain from intercourse or anything else in the vagina for the same period of time. She was last instructed to do no driving until off of all pain medications or 2 weeks' time, whichever came first. She understood her instructions and agrees to follow up as noted above. Discharge medications included all of her home medications plus a prescription for Tylenol 3, 1-2 by mouth every 6 hours when necessary pain, #20 dispensed with no refills. Discharge hemoglobin and hematocrit were 11.0 and 32.1 respectively. Procedures: #1. Da Hawa robotically assisted laparoscopic hysterectomy, failed #2. Total abdominal hysterectomy with left salpingo-oophorectomy and right salpingectomy Patient Condition at Discharge: Stable Plan - Discharge Summary Discharge Rx Participant: No New Discharge Prescriptions: No Action metFORMIN HCL [Glucophage] 500 mg PO TID Escitalopram [Lexapro] 5 mg PO HS ALPRAZolam [Xanax] 0.25 mg PO DAILY PRN PRN Reason: Anxiety Ibuprofen [Motrin Ib] 800 mg PO TID PRN PRN Reason: Pain Naproxen [Naprosyn] 375 mg PO Q12HR PRN PRN Reason: Pain Multivitamins, Thera [Multivitamin (formulary)] 1 tab PO DAILY lamoTRIgine [LaMICtal] 50 mg PO DAILY Discharge Medication List ALPRAZolam [Xanax] 0.25 mg PO DAILY PRN 08/12/18 [History] Escitalopram [Lexapro] 5 mg PO HS 08/12/18 [History] Ibuprofen [Motrin Ib] 800 mg PO TID PRN 08/12/18 [History] metFORMIN HCL [Glucophage] 500 mg PO TID 08/12/18 [History] Multivitamins, Thera [Multivitamin (formulary)] 1 tab PO DAILY 05/28/21 [History] Naproxen [Naprosyn] 375 mg PO Q12HR PRN 11/27/21 [History] lamoTRIgine [LaMICtal] 50 mg PO DAILY 11/27/21 [History] Follow up Appointment(s)/Referral(s): Dominic Estrella MD [STAFF PHYSICIAN] - 2 Weeks Discharge Disposition: HOME SELF-CARE
== END 2021-12-05 09:40 | disposition home or self-care (01) ==
LOC: OR 05:32 → 4FBP 09:55 → OR 17:28
PROVIDERS: ADMIT Obstetrics & Gynecology; ATTEND Obstetrics & Gynecology
DX: K66.0 Peritoneal adhesions (postprocedural) (postinfection) (principal); N92.1 Excessive and frequent menstruation with irregular cycle; M48.02 Spinal stenosis, cervical region; G47.33 Obstructive sleep apnea (adult) (pediatric); F41.9 Anxiety disorder, unspecified; F32.A Depression, unspecified; E11.9 Type 2 diabetes mellitus without complications; E66.01 Morbid (severe) obesity due to excess calories; Z68.39 Body mass index [BMI] 39.0-39.9, adult; Z98.890 Other specified postprocedural states; Z90.49 Acquired absence of other specified parts of digestive tract; N93.8 Other specified abnormal uterine and vaginal bleeding; Z79.84 Long term (current) use of oral hypoglycemic drugs; Z98.891 History of uterine scar from previous surgery; Z79.899 Other long term (current) drug therapy; Z88.0 Allergy status to penicillin
CPT/HCPCS: 81025; 86900; 86901; 80051; 82565; 83735; 82947; 84520; 85025 ×2; 86850; 88307; 87086; 58571; G0378 ×3; C1762; J2250; J1644; J1100; J2710; J0690; J2405; J3010; J1170 ×3; J1885 ×2; J0330; J2704; J2001

== ENCOUNTER → 2023-08-14 | Outpatient (CLI) | payer BC ==
--- NOTE | 2023-08-17 15:09 | MM ---
Reason for Exam: Screening (asymptomatic). Last mammogram was performed 3 year(s) and 8 month(s) ago. Patient History: Menarche at age 14. First Full-Term at age 22. Left ovary removed at age 41. Hysterectomy at age 41. Patient has history of breast feeding. Risk Values: Mayra 5 year model risk: 0.6%. NCI Lifetime model risk: 8.0%. Prior Study Comparison: 12/07/2019 Bilateral MG 3D screening mammo w/cad, [facility]. 12/07/2019 Left US breast workup LT, [facility]. Tissue Density: There are scattered areas of fibroglandular density. Findings: Analyzed By CAD. There is no suspicious group of microcalcifications or new suspicious mass. Overall Assessment: Negative, BI-RAD 1 Management: Screening Mammogram of both breasts in [address] [facility] will attempt to contact patient to return for supplemental views and ultrasound if indicated. Patient should continue monthly self-breast exams. A clinical breast exam by your physician is recommended on an annual basis. This exam should not preclude additional follow-up of suspicious palpable abnormalities. Note on Mayra scores and lifetime risk: 1. A Mayra score greater than 3% is considered moderate risk. If this is the case, consider specialist referral to assess eligibility for a risk reducing agent. 2. If overall lifetime risk for the development of breast cancer is 20% or higher, the patient may qualify for future screening with alternating mammogram and breast MRI. Electronically signed and approved by: Dewey Stuart DO
== END | disposition home or self-care (01) ==
LOC: RADMAMWWP 07:32
PROVIDERS: ATTEND Family Medicine
DX: Z12.31 Encounter for screening mammogram for malignant neoplasm of breast (principal)
CPT/HCPCS: 77067